=== PATIENT | male | born 1950 | race African-American/Black ===

== ENCOUNTER 2018-09-15 11:05 | Observation (INO) | payer OTHER ==
[2018-09-15 12:27] LABS: ADD MAN DIFF? NO
[2018-09-15 12:30] LABS: WHITE BLOOD COUNT 10.3 10^3/ul (4.8-10.8)
[2018-09-15 12:31] LABS: BASOPHILS % 0.2 % (0.0-2.0); HEMOGLOBIN 13.3 g/dl (14.0-18.0); LYMPHOCYTES # 1.5 10^3/ul (0.8-2.9); LYMPHOCYTES % 14.2 % (15.0-51.0); MEAN CORPUSCULAR HEMOGLOBIN 32.4 pg (29.0-33.0); MEAN CORPUSCULAR HGB CONC 34.1 g/dl (32.0-37.0); MEAN CORPUSCULAR VOLUME 95.1 fl (82.0-101.0); MEAN PLATELET VOLUME 9.8 fl (7.4-10.4); MONOCYTES % 9.8 % (0.0-11.0); NEUTROPHIL # 7.8 10^3/ul (1.6-7.5); NEUTROPHILS % 75.4 % (39.0-77.0); PLATELET COUNT 186 10^3/UL (140-415); RED CELL DISTRIBUTION WIDTH 11.4 % (11.5-14.5)
[2018-09-15 13:00] LABS: ALANINE AMINOTRANSFERASE 25 IU/L (13-69); ALBUMIN 4.9 g/dl (3.3-4.9); ALBUMIN/GLOBULIN RATIO 1.63; ALKALINE PHOSPHATASE 51 IU/L (42-121); ANION GAP 10 (5-13); ASPARTATE AMINO TRANSFERASE 53 IU/L (15-46); BILIRUBIN,INDIRECT 0.7 mg/dl (0-1.1); BILIRUBIN,TOTAL 0.7 mg/dl (0.2-1.3); BLOOD UREA NITROGEN 32 mg/dl (7-20); CALCIUM 9.4 mg/dl (8.4-10.2); CARBON DIOXIDE 35 mmol/L (21-31); CHLORIDE 95 mmol/L (97-110); CREATININE 1.28 mg/dl (0.61-1.24); Estimated GFR > 60 mL/min (>60); GLUCOSE 123 mg/dl (70-220); LIPASE 95 U/L (23-300); POTASSIUM 4.1 mmol/L (3.5-5.1); SODIUM 140 mmol/L (135-144); TOTAL PROTEIN 7.9 g/dl (6.1-8.1)
[2018-09-15] MEDS: ONDANSETRON 4 MG INJ IV ×2 (13:17→17:57)
[2018-09-15] MEDS: SOD CHLORIDE 0.9% 1,000 ML IV (13:17)
[2018-09-15] MEDS: HYDROmorphONE 1 MG/ML SYG IV (13:17)
[2018-09-15] MEDS: IODIXANOL LOCM 100 ML BTL (13:30)
[2018-09-15] MEDS: SOD CHLORIDE 0.9% 100 ML (13:30)
[2018-09-15] MEDS ORDERED: SOD CHLORIDE 0.9% 1,000 ML IV (15:04)
[2018-09-15] MEDS ORDERED: ACETAMINOPHEN 325 MG TAB PO ×2 (15:30→17:30)
[2018-09-15] MEDS ORDERED: ONDANSETRON 4 MG INJ IV (15:30)
[2018-09-15] MEDS ORDERED: BISACODYL 10 MG SUPP PR (17:30)
[2018-09-15] MEDS ORDERED: NACL 0.9% 3 ML SYG IV (17:30)
[2018-09-15] MEDS ORDERED: MAGNESIUM HYDROXIDE 30ML CUP PO (17:30)
[2018-09-15] MEDS ORDERED: DOCUSATE SODIUM 100 MG CAP PO (17:30)
[2018-09-15] MEDS: DEXTROSE 5%-0.9% NACL 1,000 ML IV (17:57)
[2018-09-15] MEDS: hydrALAzine 20 MG INJ IV (18:31)
[2018-09-15] MEDS: ENALAPRIL 20 MG TAB PO (23:17)
[2018-09-16] MEDS: ONDANSETRON 4 MG INJ IV ×2 (01:27)
[2018-09-16] MEDS: hydrALAzine 20 MG INJ IV ×2 (01:27→19:48)
[2018-09-16] MEDS: METOCLOPRAMIDE 10 MG INJ IV (02:49)
[2018-09-16] MEDS: DEXTROSE 5%-0.9% NACL 1,000 ML IV ×3 (04:02→22:36)
[2018-09-16 05:31] LABS: ADD MAN DIFF? NO
[2018-09-16] MEDS: PANTOPRAZOLE 40 MG INJ IV (05:37)
[2018-09-16 05:41] LABS: WHITE BLOOD COUNT 8.2 10^3/ul (4.8-10.8)
[2018-09-16 05:41] LABS: BASOPHILS % 0.4 % (0.0-2.0); HEMATOCRIT 34.5 % (42.0-52.0); HEMOGLOBIN 11.6 g/dl (14.0-18.0); LYMPHOCYTES % 24.1 % (15.0-51.0); MEAN CORPUSCULAR HEMOGLOBIN 32.4 pg (29.0-33.0); MEAN CORPUSCULAR HGB CONC 33.6 g/dl (32.0-37.0); MEAN CORPUSCULAR VOLUME 96.4 fl (82.0-101.0); MEAN PLATELET VOLUME 10.2 fl (7.4-10.4); MONOCYTE # 0.9 10^3/ul (0.3-0.9); NEUTROPHIL # 5.2 10^3/ul (1.6-7.5); PLATELET COUNT 166 10^3/UL (140-415); RED BLOOD COUNT 3.58 10^6/ul (4.70-6.10); RED CELL DISTRIBUTION WIDTH 11.4 % (11.5-14.5)
[2018-09-16 06:04] LABS: ALANINE AMINOTRANSFERASE 24 IU/L (13-69); ALBUMIN 3.7 g/dl (3.3-4.9); ALBUMIN/GLOBULIN RATIO 1.48; ALKALINE PHOSPHATASE 40 IU/L (42-121); ANION GAP 8 (5-13); ASPARTATE AMINO TRANSFERASE 31 IU/L (15-46); BILIRUBIN,INDIRECT 0.5 mg/dl (0-1.1); BILIRUBIN,TOTAL 0.5 mg/dl (0.2-1.3); BLOOD UREA NITROGEN 23 mg/dl (7-20); CALCIUM 8.5 mg/dl (8.4-10.2); CARBON DIOXIDE 30 mmol/L (21-31); CHLORIDE 103 mmol/L (97-110); CHOL/HDL RATIO 5.5 RATIO; CHOLESTEROL 162 mg/dl (100-200); CREATININE 1.14 mg/dl (0.61-1.24); Estimated GFR > 60 mL/min (>60); GLUCOSE 114 mg/dl (70-220); HDL CHOLESTEROL 29 mg/dl (30-78); LDL CHOLESTEROL,CALCULATED 111 mg/dl; MAGNESIUM 2.3 mg/dl (1.7-2.5); POTASSIUM 3.4 mmol/L (3.5-5.1); SODIUM 141 mmol/L (135-144); TOTAL PROTEIN 6.2 g/dl (6.1-8.1); TRIGLYCERIDES 110 mg/dl (0-149)
[2018-09-16] MEDS ORDERED: CEFAZOLIN 1 GM INJ (07:00)
[2018-09-16] MEDS ORDERED: GLYCOPYRROLATE 0.4 MG INJ ×2 (07:00→19:11)
[2018-09-16] MEDS: ASPIRIN 81 MG TAB PO (08:25)
[2018-09-16] MEDS: VERAPAMIL (SR) 240 MG TAB PO (08:26)
[2018-09-16] MEDS: ENALAPRIL 20 MG TAB PO (08:26)
[2018-09-16] MEDS ORDERED: ENALAPRIL 20 MG TAB PO (09:00)
[2018-09-16] MEDS: INDOMETHACIN 50 MG SUPP PR (13:30)
[2018-09-16] MEDS: NICOTINE (21 MG/24 HR) PATCH TRANSDERM (16:17)
[2018-09-16] MEDS: METHADONE 10 MG TAB PO (16:18)
[2018-09-16] MEDS ORDERED: PROPOFOL 20 ML (18:08)
[2018-09-16] MEDS ORDERED: ROCURONIUM 50 MG INJ (18:08)
[2018-09-16] MEDS ORDERED: LIDOCAINE 2% (SDV) 5 ML INJ (18:08)
[2018-09-16] MEDS ORDERED: NEOSTIGMINE 3 MG/3 ML SYRINGE (19:11)
[2018-09-16] MEDS ORDERED: SUGAMMADEX SODIUM 200 MG/2 ML VIAL IV (19:12)
[2018-09-16] MEDS ORDERED: LABETALOL HCL 20MG INJ IV (19:30)
[2018-09-16] MEDS ORDERED: FENTAnyl 50 MCG/ML VIAL IV ×3 (19:30)
[2018-09-16] MEDS ORDERED: EPHEDrine SULFATE 50 MG/5 ML SYG IV (19:30)
[2018-09-16] MEDS ORDERED: OXYCODONE/ACETAMINOPHEN (5/325) TAB PO ×2 (19:30)
[2018-09-16] MEDS ORDERED: DIPHENHYDRAMINE 50 MG INJ IV (19:30)
[2018-09-16] MEDS ORDERED: MIDAZOLAM 1 MG/ML 2 ML INJ IV (19:30)
[2018-09-16] MEDS ORDERED: HYDROmorphONE 1 MG/5 ML IV SYRINGE IV ×3 (19:30)
[2018-09-16] MEDS ORDERED: ONDANSETRON 4 MG INJ IV (19:30)
[2018-09-16] MEDS ORDERED: KETOROLAC 30 MG INJ IV (19:30)
[2018-09-16] MEDS ORDERED: ALBUTEROL 0.083% (NEB) 2.5 MG/3 ML AMP HHN (19:30)
[2018-09-16] MEDS ORDERED: METOCLOPRAMIDE 10 MG INJ IV (19:30)
[2018-09-16] MEDS ORDERED: MEPERIDINE 25 MG INJ IV (19:30)
[2018-09-16] MEDS: CEPASTAT LOZENGE MT (23:21)
[2018-09-17 05:29] LABS: ADD MAN DIFF? NO
[2018-09-17 05:37] LABS: WHITE BLOOD COUNT 5.6 10^3/ul (4.8-10.8)
[2018-09-17 05:37] LABS: BASOPHILS % 0.5 % (0.0-2.0); EOSINOPHILS % 0.5 % (0.0-7.0); HEMOGLOBIN 9.7 g/dl (14.0-18.0); LYMPHOCYTES # 2.1 10^3/ul (0.8-2.9); LYMPHOCYTES % 38.1 % (15.0-51.0); MEAN CORPUSCULAR HEMOGLOBIN 32.3 pg (29.0-33.0); MEAN CORPUSCULAR HGB CONC 33.4 g/dl (32.0-37.0); MEAN CORPUSCULAR VOLUME 96.7 fl (82.0-101.0); MEAN PLATELET VOLUME 10.5 fl (7.4-10.4); MONOCYTE # 0.6 10^3/ul (0.3-0.9); MONOCYTES % 10.6 % (0.0-11.0); NEUTROPHIL # 2.8 10^3/ul (1.6-7.5); NEUTROPHILS % 50.1 % (39.0-77.0); PLATELET COUNT 140 10^3/UL (140-415); RED CELL DISTRIBUTION WIDTH 11.4 % (11.5-14.5)
[2018-09-17] MEDS: PANTOPRAZOLE 40 MG INJ IV (06:00)
[2018-09-17 06:02] LABS: ALANINE AMINOTRANSFERASE 18 IU/L (13-69); ALBUMIN/GLOBULIN RATIO 1.36; ALKALINE PHOSPHATASE 31 IU/L (42-121); ANION GAP 7 (5-13); ASPARTATE AMINO TRANSFERASE 27 IU/L (15-46); BILIRUBIN,INDIRECT 0.6 mg/dl (0-1.1); BILIRUBIN,TOTAL 0.6 mg/dl (0.2-1.3); BLOOD UREA NITROGEN 14 mg/dl (7-20); CALCIUM 8.6 mg/dl (8.4-10.2); CARBON DIOXIDE 28 mmol/L (21-31); CHLORIDE 106 mmol/L (97-110); CREATININE 1.12 mg/dl (0.61-1.24); Estimated GFR > 60 mL/min (>60); GLUCOSE 96 mg/dl (70-220); POTASSIUM 3.1 mmol/L (3.5-5.1); SODIUM 141 mmol/L (135-144); TOTAL PROTEIN 5.2 g/dl (6.1-8.1)
[2018-09-17] MEDS: ASPIRIN 81 MG TAB PO (09:01)
[2018-09-17] MEDS: DEXTROSE 5%-0.9% NACL 1,000 ML IV (09:02)
[2018-09-17] MEDS: ENALAPRIL 20 MG TAB PO (09:02)
[2018-09-17] MEDS: VERAPAMIL (SR) 240 MG TAB PO (09:02)
[2018-09-17] MEDS: METHADONE 10 MG TAB PO (09:02)
[2018-09-17] MEDS: POTASSIUM CHLORIDE (SR) 20 MEQ TAB PO (11:38)
[2018-09-17] MEDS: NICOTINE (21 MG/24 HR) PATCH TRANSDERM (11:51)
== END 2018-09-17 14:41 | disposition home or self-care (01) ==
LOC: E/R 11:05 → MS1 15:05
DX: K80.50 Calculus of bile duct without cholangitis or cholecystitis without obstruction (principal); K25.9 Gastric ulcer, unspecified as acute or chronic, without hemorrhage or perforation; I10 Essential (primary) hypertension; E78.00 Pure hypercholesterolemia, unspecified; D64.9 Anemia, unspecified; N17.9 Acute kidney failure, unspecified; K76.0 Fatty (change of) liver, not elsewhere classified; Z79.82 Long term (current) use of aspirin; Z72.0 Tobacco use
CPT/HCPCS: 36415; 74177; 74181; 74330; 80053; 80061; 83690; 83735; 85025; 88305; 88312; 96361; 96374; 96375; 99285-25; G0378